=== PATIENT | female | born 1985 | race Caucasian/White ===

== ENCOUNTER 2017-09-29 01:06 | Inpatient (IN) | payer OTHER ==
[2017-09-29] VITALS (42 sets, daily range): BP systolic 94–130; BP diastolic 58–96; PULSE 61–93; RESP 16–20; TEMP 97.7–98.6; O2SAT 99
[~2017-09-29] VITALS: Ht 175.3 cm; Wt 77.0 kg
[2017-09-29] MEDS ORDERED: LACTATED RINGER'S 1000 ML INJ 1,000 ML IV SCH (01:51)
[2017-09-29] MEDS ORDERED: LACTATED RINGER'S 1000 ML INJ 1,000 ML IV PRN (01:51)
[2017-09-29] MEDS ORDERED: SODIUM CHLORID 0.9% 500 ML INJ 500 ML IV PRN (02:00)
[2017-09-29] MEDS ORDERED: PENICILLIN G POTASSIUM INJ 5,000,000 UNITS in SODIUM CHLORIDE 0.9% INJ 100 ML IV ONE ×2 (02:00→02:45)
[2017-09-29] MEDS ORDERED: ONDANSETRON HCL 4 MG/2 ML VIAL IV PUSH PRN (02:00)
[2017-09-29] MEDS ORDERED: LIDOCAINE HCL 1% 50 ML VIAL INFIL PRN (02:00)
[2017-09-29] MEDS ORDERED: OXYTOCIN 30 UNITS-500ML PREMIX 500 ML IV ONE ×2 (02:00→20:45)
[2017-09-29] MEDS ORDERED: LIDOCAINE HCL 1% 50 ML VIAL I-DERMAL PRN (02:00)
[2017-09-29] MEDS ORDERED: MINERAL OIL 10 ML VIAL TOPICAL PRN (02:00)
[2017-09-29] MEDS ORDERED: CITRIC ACID-SODIUM CITRATE LIQ 30 ML UDC PO SCH (02:00)
--- NOTE | 2017-09-29 02:01 | PD ---
HPI Chief Complaint LOF Travel History International Travel<30 Days: No Contact w/Intl Traveler<30Days: No Known Affected Area: No History of Present Illness HPI 31-year-old 020, IUP at 38.0 care complicated by scant care, late care, IV drug abuse, marijuana abuse, oxycodone abuse The patient is complaining of a large gush of clear fluid at midnight. She reports that she's had continued leaking since then. She reports painful contractions that are increasing in intensity and frequency every 5 minutes. There are no aggravating or alleviating factors with the exception of the contractions or worsening with time. There are no attempted treatments. The patient reports normal movement. She denies any vaginal bleeding. Weeks Gestation: 38 Para: 0 : 3 Miscarriage: 1 : 1 History Past Medical History Narrative Medical Hepatitis C positive Medical History: Denies Significant Hx Obstetric History Obstetric History , SAB times 1, EAB 1 Past Surgical History Narrative Surgical EAB 1 Family History Family History: Negative Social History Alcohol Use: No Tobacco Use: No Substance Abuse: Yes Allergies-Medications (Allergen,Severity, Reaction): Coded Allergies: No Known Allergies (Unverified , 02/15/17) Home Meds No Active Prescriptions or Reported Meds Review of Systems Except as stated in HPI: all other systems reviewed are Neg Physical Exam Narrative GENERAL: Well-nourished, well-developed patient. SKIN: Warm and dry. HEAD: Normocephalic and atraumatic. EYES: No scleral icterus. No injection or drainage. ENT: No nasal drainage noted. Mucous membranes pink. Airway patent. NECK: Supple, trachea midline. No JVD. CARDIOVASCULAR: Regular rate and rhythm without murmurs, gallops, or rubs. RESPIRATORY: Breath sounds equal bilaterally. No accessory muscle use. BREASTS: Deferred ABDOMEN/GI: Abdomen soft, non-tender, bowel sounds present, no rebound, no guarding Gravid GENITOURINARY: External Genitalia: intact and normal in appearance. Normal BUS. SVE 380/- 2, cephalic presentation. No cervical or vaginal masses noted. Grossly ROM with clear fluid. Grossly normal rugae FHT's: Indications: IUP at 38 weeks, scant care, IV drug abuse FHT: heart tones are in the 120s moderate long-term variability, good accelerations, no decelerations this is a reactive NST and a category 1 heart rate tracing final diagnosis: IUP at 38 weeks, scant care, IV drug abuse, early labor with PROM versus SROM follow-up: Follow-up with continuous monitoring EXTREMITIES: No cyanosis or edema. BACK: Nontender without obvious deformity. No CVA tenderness. NEUROLOGICAL: Awake and alert. Motor and sensory grossly within normal limits. Normal speech. Psychiatric: Grossly normal memory and affect Musculoskeletal: Grossly normal range of motion, gait, muscle strength Data Data Orders Orders Ob (2e) Additional Admit Info (09/29/17 01:30) Admit To Inpatient (09/29/17 ) Code Status (09/29/17 01:51) Vital Signs (Adult) .Per protocol (09/29/17 01:51) Heart (09/29/17 01:51) Amnioinfusion (09/29/17 01:51) Urinary Catheter Management .ONCE (09/29/17 01:51) Lactated Ringer's 1000 Ml Inj (Lr 1000 M (09/29/17 01:51) Lactated Ringer's 1000 Ml Inj (Lr 1000 M (09/29/17 01:51) Sodium Chlorid 0.9% 500 Ml Inj (Ns 500 M (09/29/17 02:00) Sodium Chlor 0.9% 1000 Ml Inj (Ns 1000 M (09/29/17 02:11) Lidocaine 1% Inj (50 Ml) (Xylocaine 1% I (09/29/17 02:00) Citric Acid-Sodium Citrate Liq (Bicitra (09/29/17 02:00) Ondansetron Inj (Zofran Inj) (09/29/17 02:00) Fentanyl Inj (Fentanyl Inj) (09/29/17 02:00) Fentanyl Inj (Fentanyl Inj) (09/29/17 02:00) Penicillin G Potassium Inj (Pfizerpen-G (09/29/17 02:00) Penicillin G Potassium Inj (Pfizerpen-G (09/29/17 06:00) Complete Blood Count With Diff (09/29/17 01:51) Hold Clot (09/29/17 01:51) Abo/Rh Blood Type (09/29/17 01:51) Urinalysis - C+S If Indicated (09/29/17 01:51) Drug Screen, Random Urine (09/29/17 01:51) Ob/Psych Drug Screen, Urine (09/29/17 01:51) Resp Oxygen Non Rebreathe Mask (09/29/17 ) ^ Epidural / Intrathecal Infus (09/29/17 01:51) Oxytocin 30 Units-500ml Premix (Pitocin (09/29/17 02:00) Lidocaine 1% Inj (50 Ml) (Xylocaine 1% I (09/29/17 02:00) Light Mineral Oil (Muri-Lube Oil) (09/29/17 02:00) Inpatient Certification (09/29/17 ) MDM Plan Assessment/plan: 1. IUP at 38.0 2. Scant care 3. Hepatitis C positive 4. SROM versus PROM: Patient with gross ruptured membranes since 12 AM, appears to be clear fluid. SVE 3/80/-2. Will admit for labor at term, expectant management for now. Will augment if indicated. Discussed risks benefits and alternatives of vaginal delivery as well as risks benefits and alternatives of surgery delivery if indicated. Discussed that delivery would only be performed for medical/maternal/ indication. Discussed the risks of include but are not limited to pain , infection, bleeding, injury to other organs like the bladder/bowel/nerves/ vessels, injury to the baby, need for hysterectomy, need for blood transfusion, need for repeat operation, wound infection or breakdown. All the patient's questions were answered and she is in agreement with a if indicated. 5. Polysubstance abuse: IV drug abuse, oxycodone abuse, marijuana abuse 6. Reassuring testing with reactive NST and category 1 heart rate tracing Scripts No Active Prescriptions or Reported Zuleyka Stevenson MD Sep 29, 2017 02:01
[2017-09-29] MEDS ORDERED: SODIUM CHLOR 0.9% 1000 ML INJ 1,000 ML IV PRN (02:11)
--- NOTE | 2017-09-29 02:34 | HHI.HP ---
HPI Chief Complaint SROM Date Seen: Sep 29, 2017 Time Seen: 02:17 Travel History International Travel<30 Days: No Contact w/Intl Traveler<30Days: No Known Affected Area: No History of Present Illness HPI Ms. Meléndez is a presenting at 37/6 weeks gestation with possible spontaneous rupture of membranes. She states that around midnight on 09/28/17 she had a large mcclain of clear fluid. She then presented to the ED for further evaluation. She has been having contractions increasing in severity and frequency. Currently she reports them as every 5 minutes. She has been seeking care with I[facility] Taveras. She reports that her thus far has been uncomplicated. She endorses good movement and denies any vaginal bleeding, discharge, or dysuria at this time. Otherwise she has no complaints and denies any recent fevers, chills, shortness of breath, chest pain, NVD, abdominal pain, or calf tenderness. Of note, patient has extensive illicit drug history. During multiple interviews from staff she has been inconsistent with her history. She most recently reported that she was using oral Dilaudid and hydrocodone throughout . Today she has taken 8 mg of oral Dilaudid as well as used marijuana daily throughout the . Patient also states she was recently diagnosed with hepatitis C from prior IV drug use. While she reports the most recent IV drug use was in 2011 to myself, previously she had reported she was using during this . Weeks Gestation: 37 Para: 0 : 3 History Past Medical History Narrative Medical Hepatitis C Obstetric History Obstetric History 1 miscarriage at less than 20 weeks 1 elective Past Surgical History Narrative Surgical No surgical history reported Family History Narrative Family History No significant family medical history reported Social History Narrative Social History Of note, patient has extensive illicit drug history. During multiple interviews from staff she has been inconsistent with her history. She most recently reported that she was using oral Dilaudid and hydrocodone throughout . Today she has taken 8 mg of oral Dilaudid as well as used marijuana daily throughout the . Patient also states she was recently diagnosed with hepatitis C from prior IV drug use. While she reports the most recent IV drug use was in 2011 to myself, previously she had reported she was using during this . Patient denies any alcohol or tobacco use current Alcohol Use: No Tobacco Use: No Substance Abuse: Yes Allergies-Medications (Allergen,Severity, Reaction): Coded Allergies: No Known Allergies (Unverified , 02/15/17) Home Meds No Active Prescriptions or Reported Meds Review of Systems Except as stated in HPI: all other systems reviewed are Neg Physical Exam Narrative GENERAL: Well-nourished, well-developed patient. SKIN: Warm and dry. HEAD: Normocephalic and atraumatic. EYES: No scleral icterus. No injection or drainage. ENT: No nasal drainage noted. Mucous membranes pink. Airway patent. NECK: Supple, trachea midline. No JVD. CARDIOVASCULAR: Regular rate and rhythm without murmurs, gallops, or rubs. RESPIRATORY: Breath sounds equal bilaterally. No accessory muscle use. BREASTS: Bilateral exam showed no masses , no retractions, no nipple discharge. ABDOMEN/GI: Abdomen soft, non-tender, bowel sounds present, no rebound, no guarding Gravid to 38 weeks size GENITOURINARY: Per nursing staff exam External Genitalia: intact and normal in appearance Cervix: Anterior Dilatation: 3 cm Effacement: 80 percent Station: -2 Membranes: SROM, clear Uterine Contractions: Every 5 minutes FHT's: Category: 1 Baseline: 130s Reactive: Positive Variability: Moderate Decels: None EXTREMITIES: No cyanosis or edema. BACK: Nontender without obvious deformity. No CVA tenderness. NEUROLOGICAL: Awake and alert. Motor and sensory grossly within normal limits. Five out of 5 muscle strength in all muscle groups. Normal speech. Caprini VTE Risk Assessment Caprini VTE Risk Assessment: Mod/High Risk (score >= 2) Caprini Risk Assessment Model Point Value = 1 Point Value = 2 Point Value = 3 Point Value = 5 Age 41-60 Minor surgery BMI > 25 kg/m2 Swollen legs Varicose veins or History of unexplained or recurrent spontaneous Oral contraceptives or hormone replacement Sepsis (< 1 month) Serious lung disease, including pneumonia (< 1 month) Abnormal pulmonary function Acute myocardial infarction Congestive heart failure (< 1 month) History of inflammatory bowel disease Medical patient at bed rest Age 61-74 Arthroscopic surgery Major open surgery (> 45 min) Laparoscopic surgery (> 45 min) Malignancy Confined to bed (> 72 hours) Immobilizing plaster cast Central venous access Age >= 75 History of VTE Family history of VTE Factor V Leiden Prothrombin [id number] Lupus anticoagulant Anticardiolipin antibodies Elevated serum homocysteine Heparin-induced thrombocytopenia Other congenital or acquired thrombophilia Stroke (< 1 month) Elective arthroplasty Hip, pelvis, or leg fracture Acute spinal cord injury (< 1 month) Prophylaxis Regimen Total Risk Factor Score Risk Level Prophylaxis Regimen 0-1 Low Early ambulation 2 Moderate Order ONE of the following: *Sequential Compression Device (SCD) *Heparin 5000 units SQ BID 3-4 Higher Order ONE of the following medications: *Heparin 5000 units SQ TID *Enoxaparin/Lovenox 40 mg SQ daily (WT < 150 kg, CrCl > 30 mL/min) *Enoxaparin/Lovenox 30 mg SQ daily (WT < 150 kg, CrCl > 10-29 mL/min) *Enoxaparin/Lovenox 30 mg SQ BID (WT < 150 kg, CrCl > 30 mL/min) AND/OR *Sequential Compression Device (SCD) 5 or more Highest Order ONE of the following medications: *Heparin 5000 units SQ TID (Preferred with Epidurals) *Enoxaparin/Lovenox 40 mg SQ daily (WT < 150 kg, CrCl > 30 mL/min) *Enoxaparin/Lovenox 30 mg SQ daily (WT < 150 kg, CrCl > 10-29 mL/min) *Enoxaparin/Lovenox 30 mg SQ BID (WT < 150 kg, CrCl > 30 mL/min) AND *Sequential Compression Device (SCD) Data Data Vital Signs Reviewed: Yes Orders Orders Ob (2e) Additional Admit Info (09/29/17 01:30) Admit To Inpatient (09/29/17 ) Code Status (09/29/17 01:51) Vital Signs (Adult) .Per protocol (09/29/17 01:51) Heart (09/29/17 01:51) Amnioinfusion (09/29/17 01:51) Urinary Catheter Management .ONCE (09/29/17 01:51) Lactated Ringer's 1000 Ml Inj (Lr 1000 M (09/29/17 01:51) Lactated Ringer's 1000 Ml Inj (Lr 1000 M (09/29/17 01:51) Sodium Chlorid 0.9% 500 Ml Inj (Ns 500 M (09/29/17 02:00) Sodium Chlor 0.9% 1000 Ml Inj (Ns 1000 M (09/29/17 02:11) Lidocaine 1% Inj (50 Ml) (Xylocaine 1% I (09/29/17 02:00) Citric Acid-Sodium Citrate Liq (Bicitra (09/29/17 02:00) Ondansetron Inj (Zofran Inj) (09/29/17 02:00) Fentanyl Inj (Fentanyl Inj) (09/29/17 02:00) Fentanyl Inj (Fentanyl Inj) (09/29/17 02:00) Penicillin G Potassium Inj (Pfizerpen-G (09/29/17 02:00) Penicillin G Potassium Inj (Pfizerpen-G (09/29/17 06:00) Complete Blood Count With Diff (09/29/17 01:51) Hold Clot (09/29/17 01:51) Abo/Rh Blood Type (09/29/17 01:51) Urinalysis - C+S If Indicated (09/29/17 01:51) Drug Screen, Random Urine (09/29/17 01:51) Ob/Psych Drug Screen, Urine (09/29/17 01:51) Resp Oxygen Non Rebreathe Mask (09/29/17 ) ^ Epidural / Intrathecal Infus (09/29/17 01:51) Oxytocin 30 Units-500ml Premix (Pitocin (09/29/17 02:00) Lidocaine 1% Inj (50 Ml) (Xylocaine 1% I (09/29/17 02:00) Light Mineral Oil (Muri-Lube Oil) (09/29/17 02:00) Inpatient Certification (09/29/17 ) Group B Strep: Positive Assessment/Plan Problem List: (1) 37 weeks gestation of ICD Codes: Z3A.37 - 37 weeks gestation of Status: Acute Assessment and Plan Ms. Meléndez is a 4-year-old presenting at 37/6 weeks gestation with spontaneous rupture membranes. 1. IUP at 37 weeks -Continue routine antepartum care -Amnisure positive -Labor admission orders placed -FHT category 1, reassuring -Patient requesting epidural 2. Poor Care - labs ordered 3. GBS positive -Penicillin G ordered -NKDA 4. Substance abuse -UDS ordered -Pediatric team to be notified postdelivery to monitor for signs of withdrawal 5.Hepatitis C -Hepatitis C genotype and quantitative RNA ordered SDW: Dr. Castelan Discharge Planning Pending Clinical Course Edwin Hudson MD R2 Sep 29, 2017 02:34
[2017-09-29] MEDS ORDERED: PRENTAB7 (02:44)
[2017-09-29] MEDS ORDERED: PROM25TA10 PO (02:44)
[2017-09-29 03:27] LABS: AUTOMATED NEUTROPHIL # 8.7 TH/MM3 (1.8-7.7); BASOPHIL # 0.1 TH/MM3 (0-0.2); EOSINOPHIL # 0.1 TH/MM3 (0-0.4); EOSINOPHIL % 0.6 % (0.0-4.0); HEMATOCRIT 35.9 % (35.0-46.0); HEMOGLOBIN 12.8 GM/DL (11.6-15.3); LYMPH % 13.4 % (9.0-44.0); LYMPHOCYTE # 1.5 TH/MM3 (1.0-4.8); MEAN CELL VOLUME 89.1 FL (80.0-100.0); MEAN CORPUSCULAR HEMOGLOBIN 31.7 PG (27.0-34.0); MEAN CORPUSCULAR HGB CONC 35.5 % (32.0-36.0); MEAN PLATELET VOLUME 9.2 FL (7.0-11.0); MONO % 4.8 % (0.0-8.0); MONOCYTE # 0.5 TH/MM3 (0-0.9); NEUT % 80.2 % (16.0-70.0); PLATELET COUNT 280 TH/MM3 (150-450); RED BLOOD COUNT 4.03 MIL/MM3 (4.00-5.30); RED CELL DISTRIBUTION WIDTH 13.4 % (11.6-17.2); WHITE BLOOD COUNT 10.9 TH/MM3 (4.0-11.0)
[2017-09-29] MEDS ORDERED: fentaNYL 2MCG-BUPIV 0.125% INJ 100 ML ONE (03:55)
[2017-09-29] MEDS ORDERED: fentaNYL 2MCG-BUPIV 0.125% 100 ML EPIDURAL SCH (04:00)
[2017-09-29] MEDS ORDERED: NO SYSTEM NARCOTICS PRN (04:00)
[2017-09-29] MEDS ORDERED: DO NOT ADMINISTER ANTICOAGULANTS PRN (04:00)
[2017-09-29] MEDS ORDERED: ePHEDrine/NS 25 MG/5 ML SYRINGE IV PUSH PRN (04:15)
[2017-09-29 04:40] LABS: BILIRUBIN, URINE NEG (NEG); BLOOD, URINE NEG (NEG); GLUCOSE,URINE NEG (NEG); KETONE, URINE NEG (NEG); MUCUS URINE FEW /lpf (OCC); NITRITE,URINE NEG (NEG); SQUAMOUS EPITHELIAL CELL URINE 1 /hpf (0-5); TRANSITIONAL EPI CELLS, URINE <1 /hpf; URINE COLOR YELLOW (YELLW/STRAW); URINE LEUKOCYTE ESTERASE NEG (NEG)
[2017-09-29] MEDS ORDERED: PENICILLIN G POTASSIUM INJ 2,500,000 UNITS in SODIUM CHLORIDE 0.9% INJ 100 ML IV SCH ×2 (06:00→07:00)
--- NOTE | 2017-09-29 08:11 | PD.OB.DELI ---
Weeks gestation: 37 Anesthesia: Epidural Episiotomy: Right mediolateral Vaginal Delivery: Vacuum Presentation: Occiput anterior Nuchal Cord: None Delayed cord clamping (45 sec): Yes Infant: Male, Single Delivery date: Sep 29, 2017 Delivery time: 07:40 One Minute : 9 Five Minute : 9 Weight: 2760 Placenta: Spontaneous delivery Laceration: Episiotomy Repair: Chromic interrupted, Chromic running, Vicryl running Estimated blood loss: 250 Nel Noriega MD R1 Sep 29, 2017 08:11
[2017-09-29] MEDS ORDERED: ONDANSETRON ODT 4 MG TAB PO PRN (08:15)
[2017-09-29] MEDS ORDERED: ALUMINUM/MAGNESIUM/SIMETH 30 ML CUP PO PRN (08:15)
[2017-09-29] MEDS ORDERED: ACETAMINOPHEN 325 MG TAB PO PRN (08:15)
[2017-09-29] MEDS ORDERED: WITCH HAZEL 50%/GLYCERIN 12.5% 40 PAD JAR TOPICAL PRN (08:15)
[2017-09-29] MEDS ORDERED: BENZOCAINE 20% TOPICAL SPRAY 60 ML CAN TOPICAL PRN (08:15)
[2017-09-29] MEDS ORDERED: DOCUSATE SODIUM 50 MG/SENNA 8.6 MG TAB PO PRN (08:15)
[2017-09-29] MEDS ORDERED: SODIUM CHLORIDE 0.9% FLUSH 10 ML FLUSH IV FLUSH PRN (08:15)
--- NOTE | 2017-09-29 08:22 | HHI.PR ---
Subjective Remarks [facility] Delivery Note Patient progressed to C/C/0 spontaneously with reassuring heart tones. The patient commenced spontaneous maternal expulsive efforts with descent to C/C /+2 with some deep variables noted. Variables were not with every contraction and had return to baseline, good variability, and accelerations noted between. The decision was made to proceed wtih vacuum assisted vaginal delivery. The patient was consented for procedure with risks, benefits, and alternatives discussed including but not limited to maternal injury and injury with cephalohematoma and/or intracranial hemorrhage, although the risks are low. The bladder was empty from recent removal of dean catheter. The head was in the OA presentation but felt to be somewhat asynclintic. The vacuum was insufflated to the appropriate safe zone and delivery assistance provided with desufflation between contractions. The decision was made to provide additional delivery assistance so the patient was consented for a mediolateral episiotomy which was cut to the maternal right with curved Andrews scissors without difficulty. The head delivered atraumatically after 2-3 assisted contractions. The vacuum was desufflated and the remainder of the head delivered followed by atraumatic and spontaneous delivery of the anterior shoulder and remainder of the . Terminal meconium was noted. The was placed on the maternal abdomen and vigorous within about 10 seconds of life. The cord was double clamped and cut after >45 seconds and the moved to maternal chest for skin to skin. Cord blood was obtained for the nursery and the placenta delivered spontaneously. The placenta appeared intact but was small. The right mediolateral episiotomy was repaired in the standard manner with 2-0 vicryl. A 3-0 vicryl was used to provide additional superficial skin edge support with excellent cosmesis and hemostasis noted. EBL 250cc. Apgars 9/9. Weight 6#1.4oz. Cord pH 7.24. Objective Vital Signs Date Time Temp Pulse Resp B/P (MAP) Pulse Ox O2 Delivery O2 Flow Rate FiO2 09/29/17 08:00 74 110/77 (88) 09/29/17 07:55 20 09/29/17 07:46 79 98/84 (89) 09/29/17 07:30 72 110/85 (93) 09/29/17 07:00 93 95/75 (82) 09/29/17 06:48 18 3/16/18 06:45 75 114/73 (87) 09/29/17 06:40 18 09/29/17 06:30 76 103/72 (82) 09/29/17 06:20 98.6 18 09/29/17 06:15 18 09/29/17 06:15 82 94/61 (72) 09/29/17 06:00 85 09/29/17 06:00 16 09/29/17 06:00 101/58 (72) 09/29/17 05:45 77 09/29/17 05:45 16 09/29/17 05:45 101/58 (72) 09/29/17 05:30 77 97/61 (73) 09/29/17 05:20 18 09/29/17 05:15 79 18 09/29/17 05:15 102/67 (79) 09/29/17 05:00 80 18 09/29/17 05:00 101/61 (74) 09/29/17 04:45 98/62 (74) 09/29/17 04:45 72 09/29/17 04:30 79 18 111/66 (81) 09/29/17 04:21 98.4 18 09/29/17 04:15 67 113/61 (78) 09/29/17 04:10 75 09/29/17 04:03 18 09/29/17 04:00 72 112/67 (82) 09/29/17 03:59 20 09/29/17 03:57 70 09/29/17 03:57 119/70 (86) 09/29/17 03:54 111/74 (86) 09/29/17 03:52 71 120/76 (91) 09/29/17 03:43 66 114/96 (102) 09/29/17 03:28 20 09/29/17 02:51 20 09/29/17 02:30 20 Result Diagram: 09/29/17 0230 Zuleyka Castelan MD Sep 29, 2017 08:22
--- NOTE | 2017-09-29 08:28 | PD.OB.DELI ---
Weeks gestation: 38 Anesthesia: Epidural Episiotomy: Right mediolateral Vaginal Delivery: Vacuum Presentation: Occiput anterior, Other (asynclitic) Nuchal Cord: None Delayed cord clamping (45 sec): Yes Infant: Male, Single Delivery date: Sep 29, 2017 Delivery time: 07:40 One Minute : 9 Five Minute : 9 Weight: 6# 1.4oz. Placenta: Spontaneous delivery Repair: Chromic interrupted (2-0), Chromic running (2-0), Vicryl interrupted (3 -0) Estimated blood loss: 250 Additional Information See separate delivery note Zuleyka Castelan MD Sep 29, 2017 08:28
[2017-09-29] MEDS ORDERED: OXYTOCIN 30 UNITS-500ML PREMIX 500 ML IV SCH (08:30)
[2017-09-29] MEDS: IBUPROFEN 800 MG TAB PO PRN ×2 (08:52→16:00)
[2017-09-29] MEDS ORDERED: DIPHTH/TETANUS/ACEL PERTUSSIS (BOOSTER) 0.5 ML VIAL/PFS IM ONE (16:00)
[2017-09-29] MEDS ORDERED: MEASLES, MUMPS, RUBELLA VACCINE 0.5 ML VIAL SQ ONE (16:00)
[2017-09-29] MEDS: oxyCODONE/ACETAMINOPHEN 5 MG/325 MG TAB PO PRN ×2 (16:00→20:17)
[2017-09-29] MEDS ORDERED: METHYLERGONOVINE MALEATE 0.2 MG/ML VIAL ONE (20:26)
[2017-09-29] MEDS ORDERED: METHYLERGONOVINE MALEATE 0.2 MG/ML VIAL IM ONE (20:45)
[2017-09-29] MEDS ORDERED: ZOLPIDEM TARTRATE 5 MG TAB PO PRN (21:00)
[2017-09-30] MEDS: IBUPROFEN 800 MG TAB PO PRN ×3 (00:12→19:44)
[2017-09-30] MEDS: oxyCODONE/ACETAMINOPHEN 5 MG/325 MG TAB PO PRN ×5 (00:13→19:43)
--- NOTE | 2017-09-30 08:48 | HHI.OB ---
Subjective Post Day: 1 Remarks Patient seen and examined this morning. day #1. AFVSS overnight. Patient reports mild to moderate lower pelvic pain and some irritation with her sutures used to repair her episiotomy. Patient reports decreased vaginal bleeding s/p methergine last night. Denies dysuria. No breast tenderness. She is feeding the baby via formula. Appetite good. No nausea or vomiting. She denies any BMs following delivery. Ambulating well. Denies fevers, SOB, calf pain. Objective Vitals/I&O Vital Signs Date Time Temp Pulse Resp B/P (MAP) Pulse Ox O2 Delivery O2 Flow Rate FiO2 09/29/17 20:00 97.7 16 09/29/17 20:00 61 127/87 (100) 09/29/17 10:15 73 116/77 (90) 09/29/17 10:15 98.0 18 09/29/17 10:15 99 09/29/17 09:45 75 128/81 (97) 09/29/17 09:30 75 122/83 (96) 09/29/17 09:15 69 125/92 (103) 09/29/17 09:00 71 130/86 (101) 09/29/17 08:45 70 128/86 (100) Objective Remarks GENERAL: Well-nourished, well-developed patient. CARDIOVASCULAR: Regular rate and rhythm without murmurs, gallops, or rubs. RESPIRATORY: Breath sounds equal bilaterally. No accessory muscle use. ABDOMEN/GI: Abdomen soft, non-tender. Fundus: Firm, non-tender at umbilicus. GENITOURINARY: Light to moderate bleeding. EXTREMITIES: No cyanosis or edema, non-tender, without signs of DVT. Medications and IVs Current Medications Medications (Trade) Dose Ordered Sig/Taye Route Start Time Stop Time Status Last Admin (NS Flush) 2 ml BID IV FLUSH 09/29/17 09:00 (NS Flush) 2 ml UNSCH PRN IV FLUSH 09/29/17 08:15 (Tylenol) 650 mg Q4H PRN PO 09/29/17 08:15 (Motrin) 800 mg Q8H PRN PO 09/29/17 08:15 09/30/17 00:12 (Percocet 5-325 Mg) 1 tab Q4H PRN PO 09/29/17 08:15 09/30/17 05:55 (Americaine 20% Top Spr) 1 spray Q4H PRN TOPICAL 09/29/17 08:15 09/29/17 16:01 (Tucks Pads) 1 applic QID PRN TOPICAL 09/29/17 08:15 09/29/17 16:00 (Judith-Colace) 2 tab Q12H PRN PO 09/29/17 08:15 (Ambien) 5 mg HS PRN PO 09/29/17 21:00 (Mag-Al Plus Susp Liq) 15 ml Q8H PRN PO 09/29/17 08:15 (Zofran Odt) 4 mg Q6H PRN PO 09/29/17 08:15 09/29/17 21:27 Assessment/Plan Problem List: (1) care following vaginal delivery ICD Codes: Z39.2 - Encounter for routine follow-up Assessment and Plan 31 year old now PPD#1. 1. Care - AFVSS - Encouraged OOB, as tolerated - Motrin or Percocet prn pain - Advised pelvic rest x 6 weeks - Formula feeding - Contraception: Discussed with patient this AM, not desiring at this time - Will f/u with OB provider within 6 weeks 2. Substance abuse - Patient has been inconsistent in reporting her substance abuse history - Per EMR, patient noted to have used oral dilaudid and hydrocodone throughout current - Case management has been consulted for further investigation 3. Hepatitis C - HCV studies pending dw Dr. Hernández Discharge Planning Anticipate discharge tomorrow pending stable clinical course Pritesh Shah MD Sep 30, 2017 08:48
[2017-09-30] MEDS: SODIUM CHLORIDE 0.9% FLUSH 10 ML FLUSH IV FLUSH SCH (10:45)
[2017-09-30 19:44] VITALS: BP 114/75; PULSE 73; RESP 18; TEMP 98.7
[2017-10-01] MEDS: oxyCODONE/ACETAMINOPHEN 5 MG/325 MG TAB PO PRN ×3 (00:02→08:52)
[2017-10-01] MEDS: IBUPROFEN 800 MG TAB PO PRN (04:46)
--- NOTE | 2017-10-01 08:14 | HHI.OB ---
Subjective Post Day: 2 Remarks Patient seen and examined this morning. day #2. AFVSS overnight. Patient states her lower pelvic pain is improved from yesterday, and her irritation of the sutures used to repair her episiotomy are no longer bothersome. Patient reports decreased vaginal bleeding. No breast tenderness. Appetite good. No nausea or vomiting. Ambulating well without issues. Denies fevers, SOB, dysuria, calf pain. Objective Vitals/I&O Vital Signs Date Time Temp Pulse Resp B/P (MAP) Pulse Ox O2 Delivery O2 Flow Rate FiO2 09/30/17 19:44 73 18 09/30/17 19:44 98.7 09/30/17 19:44 114/75 (88) Objective Remarks GENERAL: Well-nourished, well-developed patient. CARDIOVASCULAR: Regular rate and rhythm without murmurs, gallops, or rubs. RESPIRATORY: Breath sounds equal bilaterally. No accessory muscle use. ABDOMEN/GI: Abdomen soft, non-tender. Fundus: Firm, non-tender at umbilicus. GENITOURINARY: Light to moderate bleeding. EXTREMITIES: No cyanosis or edema, non-tender, without signs of DVT. Medications and IVs Current Medications Medications (Trade) Dose Ordered Sig/Taye Route Start Time Stop Time Status Last Admin (NS Flush) 2 ml BID IV FLUSH 09/29/17 09:00 09/30/17 10:45 (NS Flush) 2 ml UNSCH PRN IV FLUSH 09/29/17 08:15 (Tylenol) 650 mg Q4H PRN PO 09/29/17 08:15 (Motrin) 800 mg Q8H PRN PO 09/29/17 08:15 10/01/17 04:46 (Percocet 5-325 Mg) 1 tab Q4H PRN PO 09/29/17 08:15 10/01/17 04:46 (Americaine 20% Top Spr) 1 spray Q4H PRN TOPICAL 09/29/17 08:15 09/29/17 16:01 (Tucks Pads) 1 applic QID PRN TOPICAL 09/29/17 08:15 09/29/17 16:00 (Judith-Colace) 2 tab Q12H PRN PO 09/29/17 08:15 09/30/17 10:45 (Ambien) 5 mg HS PRN PO 09/29/17 21:00 (Mag-Al Plus Susp Liq) 15 ml Q8H PRN PO 09/29/17 08:15 (Zofran Odt) 4 mg Q6H PRN PO 09/29/17 08:15 09/29/17 21:27 Assessment/Plan Problem List: (1) care following vaginal delivery ICD Codes: Z39.2 - Encounter for routine follow-up Assessment and Plan 31 year old now PPD#2. 1. Care - AFVSS - Encouraged OOB, as tolerated - Motrin prn pain - Advised pelvic rest x 6 weeks - Formula feeding - Contraception: Discussed with patient this AM, not desiring at this time - Will f/u with OB provider within 6 weeks 2. Substance abuse - Patient has been inconsistent in reporting her substance abuse history - Per EMR, patient noted to have used oral dilaudid and hydrocodone throughout current - Case management has been consulted for further investigation 3. Hepatitis C - HCV studies pending dw Dr. Blanco Discharge Planning Stable for discharge today Pritesh Shah MD Oct 01, 2017 08:14
[2017-10-01] MEDS ORDERED: IBUP1TAB7 PO (08:15)
[2017-10-01] MEDS ORDERED: PERI PO (08:15)
--- NOTE | 2017-10-01 08:15 | HHI.DCPOC ---
Discharge Care Plan Report Symptoms to Your Doctor -Temperature above 100.5 degrees -Redness, of incision or excessive or foul smelling drainage -Unusual pain or calf pain -Increased vaginal bleeding -Painful or difficulty urinating -Feelings of extreme sadness or anxiety after 2 weeks Goals to Promote Your Health * To prevent worsening of your condition and complications, follow up with your OB provider within 6 weeks after hospital discharge. Directions to Meet Your Goals Take your medications as prescribed Follow your dietary instruction Follow activity as directed Ensure plenty of rest for recovery Drink fluids for hydration Keep your appointments as scheduled Take your immunizations and boosters as scheduled If your symptoms worsen call your PCP, if no PCP go to Urgent Care Center or Emergency Room Smoking is Dangerous to Your Health. Avoid second hand smoke Call the 24-hour crisis hotline for domestic abuse at Pritesh Shah MD Oct 01, 2017 08:15
[2017-10-01] MEDS: SODIUM CHLORIDE 0.9% FLUSH 10 ML FLUSH IV FLUSH SCH (10:24)
[2017-10-02 13:53] LABS: HCV RNA PCR IU/ML 3000000 IU/mL (Not Detected)
== END 2017-10-01 12:24 | disposition home or self-care (01) | DRG 774 ==
LOC: HOBED 01:06 → H2EA 01:31 → H1EA 09:57
PROVIDERS: ADMIT Obstetrics & Gynecology; ATTEND Obstetrics & Gynecology
PROC: 10D07Z6 Extraction of Products of Conception, Vacuum, Via Natural or Artificial Opening (ICD-10-PCS; principal; 2017-09-29)
PROC: 0W8NXZZ Division of Female Perineum, External Approach (ICD-10-PCS; 2017-09-29)
DX: O99.324 Drug use complicating childbirth (principal); O98.42 Viral hepatitis complicating childbirth; O77.0 Labor and delivery complicated by meconium in amniotic fluid; O99.824 Streptococcus B carrier state complicating childbirth; F11.10 Opioid abuse, uncomplicated; F12.10 Cannabis abuse, uncomplicated; Z37.0 Single live birth; Z3A.38 38 weeks gestation of pregnancy
CPT/HCPCS: 59025; 80307; 81001; 82805; 84112; 85025; 86592; 86703; 86762; 86900; 86901; 87340; 87522; 87902; 88307; G0481; J2210; J2540; J2590; J7120